=== PATIENT | female | born 1995 | race Caucasian/White ===

== ENCOUNTER 2017-07-31 11:01 | Emergency (ER) | payer OTHER ==
[~2017-07-31] VITALS: Ht 160 cm; Wt 61.0 kg
[2017-07-31 11:15] VITALS: BP 139/77
== END 2017-07-31 11:46 | disposition home or self-care (01) ==
LOC: ED 11:24
DX: L03.115 Cellulitis of right lower limb (principal); J45.909 Unspecified asthma, uncomplicated
CPT/HCPCS: 99283

== ENCOUNTER 2017-08-02 11:38 | Emergency (ER) | payer OTHER ==
[~2017-08-02] VITALS: Ht 160 cm; Wt 60.7 kg
[2017-08-02 11:40] VITALS: BP 128/84
== END 2017-08-02 12:46 | disposition home or self-care (01) ==
LOC: ED 12:45
DX: Z48.01 Encounter for change or removal of surgical wound dressing (principal); F32.9 Major depressive disorder, single episode, unspecified; J45.909 Unspecified asthma, uncomplicated
CPT/HCPCS: 99283

== ENCOUNTER 2018-05-08 13:37 | Emergency (ER) | payer OTHER ==
[~2018-05-08] VITALS: Ht 160 cm; Wt 56.2 kg
[2018-05-08 13:43] VITALS: BP 129/78
[2018-05-08] MEDS ORDERED: LIDOCAINE-MPF 2%, 2ML ONE (13:58)
[2018-05-08] MEDS ORDERED: LIDOCAINE 1%-EPI 1:100K, 20ML SQ ONE (14:00)
== END 2018-05-08 15:41 | disposition home or self-care (01) ==
LOC: ED 15:40
DX: L02.414 Cutaneous abscess of left upper limb (principal); F41.1 Generalized anxiety disorder
CPT/HCPCS: 10060; 82962; 99283

== ENCOUNTER 2018-05-10 11:22 | Emergency (ER) | payer OTHER ==
[~2018-05-10] VITALS: Ht 160 cm; Wt 57.5 kg
[2018-05-10 11:25] VITALS: BP 125/67
== END 2018-05-10 12:43 | disposition home or self-care (01) ==
LOC: ED 12:31
DX: L02.414 Cutaneous abscess of left upper limb (principal); J45.909 Unspecified asthma, uncomplicated; F17.200 Nicotine dependence, unspecified, uncomplicated
CPT/HCPCS: 99283

== ENCOUNTER 2018-05-11 10:52 | Emergency (ER) | payer OTHER ==
[~2018-05-11] VITALS: Ht 160 cm; Wt 58.2 kg
[2018-05-11 10:54] VITALS: BP 123/70
[2018-05-11] MEDS ORDERED: CEFAZOLIN 1,000 MG ONE (11:28)
[2018-05-11] MEDS ORDERED: HYDROcodone/APAP 5/325 TABLET ONE (11:29)
[2018-05-11] MEDS ORDERED: HYDROcodone/APAP 5/325 TABLET PO ONE (11:30)
[2018-05-11] MEDS ORDERED: CEFAZOLIN 1,000 MG IM ONE (11:30)
[2018-05-12] MEDS ORDERED: SULF-169 PO (17:04)
[2018-05-12] MEDS ORDERED: ALBU18HF INH (17:04)
[2018-05-12] MEDS ORDERED: NAPR-685 PO (17:04)
[2018-05-12] MEDS ORDERED: CEPH-376 PO (17:04)
== END 2018-05-11 12:04 | disposition home or self-care (01) ==
LOC: ED 11:47
DX: L03.113 Cellulitis of right upper limb (principal); F17.210 Nicotine dependence, cigarettes, uncomplicated; J45.909 Unspecified asthma, uncomplicated
CPT/HCPCS: 96372; 99283; J0690

== ENCOUNTER 2018-05-12 11:42 | Inpatient (IN) | payer OTHER ==
[~2018-05-12] VITALS: Ht 160 cm; Wt 56.8 kg
[2018-05-12] MEDS ORDERED: AMPICILLIN/SULBACTAM 3 GM in SODIUM CHLORIDE 0.9% 100 ML IVPB ONE (12:30)
[2018-05-12] MEDS ORDERED: VANCOMYCIN PER PHARMACY IV ONE (12:30)
[2018-05-12] MEDS ORDERED: PHARMACOKINETIC CONSULTATION MC ONE ×2 (12:30→15:30)
[2018-05-12] MEDS ORDERED: VANCOMYCIN PMX 1GM/200ML 200 ML IV ONE (12:30)
[2018-05-12] MEDS ORDERED: LIDOCAINE-MPF 2%, 2ML ONE (12:34)
[2018-05-12 12:43] LABS: BASOPHILS % (AUTO) 1 % (0-1); EOSINOPHILS # (AUTO) 0.22 x10^3/uL (0-0.4); EOSINOPHILS % (AUTO) 2 % (1-7); LYMPHOCYTES # (AUTO) 1.99 x10^3/uL (1-3.4); LYMPHOCYTES % (AUTO) 18 % (22-44); MD NO; MEAN CORPUSCULAR HEMOGLOBIN 30.5 pg (27.0-34.8); MEAN CORPUSCULAR HGB CONC 34.6 g/dL (32.4-35.8); MEAN CORPUSCULAR VOLUME 88.2 fL (80-100); MEAN PLATELET VOLUME 7.2 fL (7.4-10.4); MONOCYTES # (AUTO) 0.58 x10^3/uL (0.2-0.8); MONOCYTES % (AUTO) 5 % (2-9); NEUTROPHILS # (AUTO) 8.01 x10^3/uL (1.8-6.8); NEUTROPHILS % (AUTO) 74 % (42-75); PLATELET COUNT 468 x10^3/uL (130-400); RED BLOOD COUNT 4.28 x10^6/uL (3.82-5.3); RED CELL DISTRIBUTION WIDTH 13.5 % (9.6-15.2)
[2018-05-12] MEDS ORDERED: MORPHINE SULFATE 4 MG/ML, 1ML ONE (12:51)
[2018-05-12 12:54] LABS: ANION GAP 8 mmol/L (5-15); CHLORIDE 105 mmol/L (98-107); CREATININE 0.78 mg/dL (0.55-1.02)
[2018-05-12] MEDS ORDERED: ONDANSETRON ODT 4 MG PO ONE (13:00)
[2018-05-12] MEDS ORDERED: MORPHINE SULFATE 4 MG/ML, 1ML IVPush PRN (13:00)
[2018-05-12] MEDS ORDERED: LIDOCAINE 2%, 20ML SQ ONE (13:00)
[2018-05-12] MEDS ORDERED: OMNIPAQUE 350 MG/ML, 100ML BOTTLE ONE (13:28)
[2018-05-12] MEDS ORDERED: PHARMACOKINETIC MONITORING MC PRN (15:30)
[2018-05-12] MEDS ORDERED: ONDANSETRON ODT 4 MG PO PRN (15:30)
[2018-05-12] MEDS ORDERED: VANCOMYCIN PER PHARMACY MC PRN (15:30)
[2018-05-12] MEDS ORDERED: ONDANSETRON 2MG/ML, 2ML IVPush PRN (15:30)
[2018-05-12] MEDS: NICOTINE 14MG/24 HR PATCH.TD24 TD SCH (15:30)
[2018-05-12 15:45] VITALS: BP 110/68
[2018-05-12] MEDS: SODIUM CHLORIDE 0.9% 1,000 ML IV SCH (16:17)
[2018-05-12] MEDS ORDERED: CEPH-376 PO (17:04)
[2018-05-12] MEDS ORDERED: SULF-169 PO (17:04)
[2018-05-12] MEDS ORDERED: NAPR-685 PO (17:04)
[2018-05-12] MEDS ORDERED: ALBU18HF INH (17:04)
[2018-05-12] MEDS: ACETAMINOPHEN 325 MG TABLET PO PRN (18:38)
[2018-05-12 19:08] VITALS: BP 122/73
[2018-05-12] MEDS: AMPICILLIN/SULBACTAM 3 GM in SODIUM CHLORIDE 0.9% 100 ML IV SCH (21:57)
[2018-05-13] MEDS: ACETAMINOPHEN 325 MG TABLET PO PRN ×4 (00:49→20:25)
[2018-05-13] MEDS: VANCOMYCIN PMX 1GM/200ML 200 ML IV SCH ×2 (00:49→13:21)
[2018-05-13 01:38] VITALS: BP 116/68
[2018-05-13 05:20] LABS: BASOPHILS # (AUTO) 0.17 x10^3/uL (0-0.1); BASOPHILS % (AUTO) 2 % (0-1); EOSINOPHILS # (AUTO) 0.47 x10^3/uL (0-0.4); EOSINOPHILS % (AUTO) 4 % (1-7); LYMPHOCYTES # (AUTO) 3.39 x10^3/uL (1-3.4); LYMPHOCYTES % (AUTO) 29 % (22-44); MD NO; MEAN CORPUSCULAR HEMOGLOBIN 29.8 pg (27.0-34.8); MEAN CORPUSCULAR HGB CONC 33.8 g/dL (32.4-35.8); MEAN CORPUSCULAR VOLUME 88.1 fL (80-100); MEAN PLATELET VOLUME 7.5 fL (7.4-10.4); MONOCYTES # (AUTO) 0.84 x10^3/uL (0.2-0.8); MONOCYTES % (AUTO) 7 % (2-9); NEUTROPHILS % (AUTO) 58 % (42-75); PLATELET COUNT 481 x10^3/uL (130-400); RED BLOOD COUNT 4.41 x10^6/uL (3.82-5.3); RED CELL DISTRIBUTION WIDTH 13.8 % (9.6-15.2)
[2018-05-13 05:30] LABS: CREATININE 0.73 mg/dL (0.55-1.02)
[2018-05-13] MEDS: AMPICILLIN/SULBACTAM 3 GM in SODIUM CHLORIDE 0.9% 100 ML IV SCH ×3 (06:02→21:25)
[2018-05-13 07:10] VITALS: BP 118/76
[2018-05-13] MEDS: SODIUM CHLORIDE 0.9% 1,000 ML IV SCH (07:52)
[2018-05-13] MEDS ORDERED: NORE-73 PO (10:15)
[2018-05-13 13:40] VITALS: BP 121/78
[2018-05-13] MEDS: NICOTINE 14MG/24 HR PATCH.TD24 TD SCH (15:30)
[2018-05-13 18:47] VITALS: BP 115/71
[2018-05-13] MEDS: MICROGESTIN HOMEMEDPO SCH (20:25)
[2018-05-14] MEDS: VANCOMYCIN PMX 1GM/200ML 200 ML IV SCH ×2 (00:57→13:05)
[2018-05-14 02:54] VITALS: BP 114/71
[2018-05-14] MEDS: SODIUM CHLORIDE 0.9% 1,000 ML IV SCH (05:53)
[2018-05-14] MEDS: AMPICILLIN/SULBACTAM 3 GM in SODIUM CHLORIDE 0.9% 100 ML IV SCH ×3 (05:53→22:14)
[2018-05-14] MEDS: ACETAMINOPHEN 325 MG TABLET PO PRN ×3 (06:01→20:56)
[2018-05-14 06:19] LABS: BASOPHILS # (AUTO) 0.13 x10^3/uL (0-0.1); BASOPHILS % (AUTO) 2 % (0-1); EOSINOPHILS # (AUTO) 0.47 x10^3/uL (0-0.4); EOSINOPHILS % (AUTO) 6 % (1-7); LYMPHOCYTES # (AUTO) 2.83 x10^3/uL (1-3.4); LYMPHOCYTES % (AUTO) 37 % (22-44); MD NO; MEAN CORPUSCULAR HEMOGLOBIN 29.6 pg (27.0-34.8); MEAN CORPUSCULAR HGB CONC 33.8 g/dL (32.4-35.8); MEAN CORPUSCULAR VOLUME 87.4 fL (80-100); MONOCYTES # (AUTO) 0.56 x10^3/uL (0.2-0.8); MONOCYTES % (AUTO) 7 % (2-9); NEUTROPHILS # (AUTO) 3.73 x10^3/uL (1.8-6.8); NEUTROPHILS % (AUTO) 48 % (42-75); PLATELET COUNT 520 x10^3/uL (130-400); RED BLOOD COUNT 4.15 x10^6/uL (3.82-5.3); RED CELL DISTRIBUTION WIDTH 13.2 % (9.6-15.2)
[2018-05-14 09:11] VITALS: BP 116/75
[2018-05-14 14:50] VITALS: BP 125/65
[2018-05-14] MEDS: NICOTINE 14MG/24 HR PATCH.TD24 TD SCH (15:30)
[2018-05-14 18:33] VITALS: BP 111/63
[2018-05-14] MEDS: VANCOMYCIN 1,200 MG in SODIUM CHLORIDE 0.9% 250 ML IV SCH (19:38)
[2018-05-14] MEDS: MICROGESTIN HOMEMEDPO SCH (20:56)
[2018-05-15 01:26] VITALS: BP 117/66
[2018-05-15] MEDS: SODIUM CHLORIDE 0.9% 1,000 ML IV SCH ×2 (02:27→23:44)
[2018-05-15] MEDS: AMPICILLIN/SULBACTAM 3 GM in SODIUM CHLORIDE 0.9% 100 ML IV SCH ×3 (06:09→21:52)
[2018-05-15 07:15] VITALS: BP 113/64
[2018-05-15] MEDS: VANCOMYCIN 1,200 MG in SODIUM CHLORIDE 0.9% 250 ML IV SCH ×2 (08:08→19:26)
[2018-05-15 13:35] VITALS: BP 131/70
[2018-05-15] MEDS: NICOTINE 14MG/24 HR PATCH.TD24 TD SCH (15:30)
[2018-05-15 20:22] VITALS: BP 117/73
[2018-05-15] MEDS: MICROGESTIN HOMEMEDPO SCH (20:53)
[2018-05-16 01:41] VITALS: BP 103/61
[2018-05-16] MEDS: AMPICILLIN/SULBACTAM 3 GM in SODIUM CHLORIDE 0.9% 100 ML IV SCH (05:25)
[2018-05-16 05:40] LABS: ANION GAP 4 mmol/L (5-15); CALCIUM 8.4 mg/dL (8.5-10.1); CHLORIDE 108 mmol/L (98-107); CREATININE 0.74 mg/dL (0.55-1.02)
[2018-05-16 05:46] LABS: BASOPHILS # (AUTO) 0.09 x10^3/uL (0-0.1); BASOPHILS % (AUTO) 1 % (0-1); EOSINOPHILS # (AUTO) 0.38 x10^3/uL (0-0.4); EOSINOPHILS % (AUTO) 5 % (1-7); LYMPHOCYTES # (AUTO) 3.41 x10^3/uL (1-3.4); LYMPHOCYTES % (AUTO) 42 % (22-44); MD NO; MEAN CORPUSCULAR HEMOGLOBIN 29.6 pg (27.0-34.8); MEAN CORPUSCULAR HGB CONC 33.5 g/dL (32.4-35.8); MEAN CORPUSCULAR VOLUME 88.3 fL (80-100); MONOCYTES # (AUTO) 0.52 x10^3/uL (0.2-0.8); MONOCYTES % (AUTO) 6 % (2-9); NEUTROPHILS # (AUTO) 3.81 x10^3/uL (1.8-6.8); NEUTROPHILS % (AUTO) 46 % (42-75); PLATELET COUNT 559 x10^3/uL (130-400); RED BLOOD COUNT 4.37 x10^6/uL (3.82-5.3); RED CELL DISTRIBUTION WIDTH 13.6 % (9.6-15.2)
[2018-05-16 06:19] LABS: HCT (SEDRATE) 38.6 % (34.6-47.8)
[2018-05-16] MEDS: VANCOMYCIN 1,200 MG in SODIUM CHLORIDE 0.9% 250 ML IV SCH (07:41)
[2018-05-16 08:50] VITALS: BP 110/61
[2018-05-16] MEDS ORDERED: DOXY100T PO (11:46)
== END 2018-05-16 12:36 | disposition home or self-care (01) | DRG 558 ==
LOC: ED 14:25 → EDIP 14:26 → 3NE 15:19
PROVIDERS: ADMIT Hospitalist; ATTEND Hospitalist
PROC: 0X980ZZ Drainage of Right Upper Arm, Open Approach (ICD-10-PCS; principal; 2018-05-12)
DX: M60.021 Infective myositis, right upper arm (principal); E87.1 Hypo-osmolality and hyponatremia; J45.909 Unspecified asthma, uncomplicated; F41.1 Generalized anxiety disorder; L73.2 Hidradenitis suppurativa; F17.200 Nicotine dependence, unspecified, uncomplicated; Z80.8 Family history of malignant neoplasm of other organs or systems; Z82.49 Family history of ischemic heart disease and other diseases of the circulatory system; Z83.3 Family history of diabetes mellitus
CPT/HCPCS: 36415; 80048; 80202; 82040; 82565; 84520; 85025; 85651; 86140; 87070; 87075; 87076; 87147; 87205; 96365; 96375; 99285; G0378; J0295; J3370; Q9967; J7030; J7050